=== PATIENT | male | born 1950 | race Caucasian/White ===

== ENCOUNTER → 2016-09-09 | Outpatient (CLI) | payer BC ==
[~2016-09-09] MED LIST: ATOR-22 PO; GLC/500 PO; GLC5; GLC5 PO; VTMD1000
[2016-09-09 13:08] LABS: ESTIMATED AVERAGE GLUCOSE 192 mg/dl; HA1C FLAG Normal (Normal)
[2016-09-09 13:10] LABS: ALT/SGPT 34 U/L (12-78); BLOOD UREA NITROGEN 11 mg/dl (7-18); BUN/CREATININE RATIO 10.4 (10-20); CALCIUM 8.7 mg/dl (8.5-10.1); CARBON DIOXIDE 24 mmol/L (21-32); CHLORIDE 103 mmol/L (98-107); CHOLESTEROL 143 mg/dl (0-200); GLUCOSE 132 mg/dl (70-99); POTASSIUM 3.9 mmol/L (3.5-5.1); SODIUM 138 mmol/L (136-145)
[2016-09-09 13:14] LABS: ALKALINE PHOSPHATASE 83 U/L (45-117); AST/SGOT 25 U/L (15-37); CHOLESTEROL/HDL RATIO 3.3; HDL CHOLESTEROL 43 mg/dl; LDL CHOLESTEROL CALCULATED 53 mg/dl; PROSTATE SPECIFIC ANTIGEN 0.796 ng/ml (0.000-4.000); TRIGLYCERIDES 237 mg/dl (0-150); VERY LOW DENSITY LIPOPROT CALC 47 mg/dl
[2016-09-09 13:34] LABS: RATIO 8.1 mcg/mg (0-30.0)
== END | disposition home or self-care (01) ==
LOC: C.LABBFT 07:58
PROVIDERS: ATTEND Nurse Practitioner
DX: E11.65 Type 2 diabetes mellitus with hyperglycemia (principal); Z12.5 Encounter for screening for malignant neoplasm of prostate

== ENCOUNTER → 2017-01-13 | Outpatient (CLI) | payer BC ==
[2017-01-13 12:19] LABS: ESTIMATED AVERAGE GLUCOSE 177 mg/dl; HA1C FLAG Normal (Normal)
[2017-01-13 12:27] LABS: AST/SGOT 20 U/L (15-37); BLOOD UREA NITROGEN 21 mg/dl (7-18); BUN/CREATININE RATIO 17.5 (10-20); CALCIUM 8.7 mg/dl (8.5-10.1); CARBON DIOXIDE 27 mmol/L (21-32); CHLORIDE 104 mmol/L (98-107); GLUCOSE 115 mg/dl (70-99); POTASSIUM 4.6 mmol/L (3.5-5.1); SODIUM 137 mmol/L (136-145)
[2017-01-13 12:39] LABS: ALB/GLOB RATIO 1.1 (0.9-2); ALKALINE PHOSPHATASE 74 U/L (45-117); ALT/SGPT 30 U/L (12-78); CHOLESTEROL 151 mg/dl (0-200); CHOLESTEROL/HDL RATIO 4.3; HDL CHOLESTEROL 35 mg/dl; LDL CHOLESTEROL CALCULATED 52 mg/dl; TRIGLYCERIDES 318 mg/dl (0-150); VERY LOW DENSITY LIPOPROT CALC 64 mg/dl
== END | disposition home or self-care (01) ==
LOC: C.LABBFT 07:39
PROVIDERS: ATTEND Nurse Practitioner
DX: E11.65 Type 2 diabetes mellitus with hyperglycemia (principal); E07.9 Disorder of thyroid, unspecified

== ENCOUNTER → 2017-07-19 | Outpatient (CLI) | payer BC ==
[2017-07-19 12:51] LABS: ESTIMATED AVERAGE GLUCOSE 166 mg/dl; HA1C FLAG Normal (Normal)
[2017-07-19 12:55] LABS: ALT/SGPT 28 U/L (12-78); BLOOD UREA NITROGEN 14 mg/dl (7-18); BUN/CREATININE RATIO 10.8 (10-20); CALCIUM 9.1 mg/dl (8.5-10.1); CARBON DIOXIDE 27 mmol/L (21-32); CHLORIDE 99 mmol/L (98-107); CHOLESTEROL 166 mg/dl (0-200); CREATININE 1.26 mg/dl (0.60-1.40); GLUCOSE 160 mg/dl (70-99); POTASSIUM 4.1 mmol/L (3.5-5.1); SODIUM 134 mmol/L (136-145); TRIGLYCERIDES 414 mg/dl (0-150)
[2017-07-19 12:59] LABS: ALKALINE PHOSPHATASE 84 U/L (45-117); AST/SGOT 20 U/L (15-37); CHOLESTEROL/HDL RATIO 3.5; HDL CHOLESTEROL 47 mg/dl; PROSTATE SPECIFIC ANTIGEN 0.774 ng/ml (0.000-4.000)
[2017-07-19 13:01] LABS: CREATININE RANDOM URINE 18.5 mg/dl
[2017-07-19 13:12] LABS: RATIO 135.7 mcg/mg (0-30.0)
== END | disposition home or self-care (01) ==
LOC: C.LABBFT 08:27
PROVIDERS: ATTEND Nurse Practitioner
DX: E11.65 Type 2 diabetes mellitus with hyperglycemia (principal); Z12.5 Encounter for screening for malignant neoplasm of prostate

== ENCOUNTER → 2017-07-28 | Outpatient (CLI) | payer BC ==
--- NOTE | 2017-07-28 09:27 | DIAGNOSTIC IMAGING REPORT ---
ULTRASOUND EXAM AAA SCREEN CLINICAL HISTORY: 67 years-old Male presenting with Z00.00 Health Maintenance. TECHNIQUE: Real-time grayscale and color and spectral Doppler ultrasound imaging of the abdominal aorta and iliac arteries was performed. COMPARISON: None. FINDINGS: Proximal aorta: Patent. Transverse dimension 2.3 x 2.4 cm. Mid aorta: Patent. Transverse dimension 2.1 x 2.1 cm. Distal aorta: Patent. Transverse dimension 2.1 x 2.0 cm. Right iliac artery: Patent. Transverse dimension 1.5 x 1.4 cm. Left iliac artery: Patent. Transverse dimension 1.5 x 1.5 cm. IMPRESSION: 1. No evidence of abdominal aortic aneurysm. Electronically signed by: Uche Contreras M.D. 07/28/2017 9:25 AM Dictated Date/Time: 07/28/2017 9:21 AM
== END | disposition home or self-care (01) ==
LOC: C.ULTR 08:52
PROVIDERS: ATTEND Nurse Practitioner
DX: Z00.00 Encounter for general adult medical examination without abnormal findings (principal); Z87.891 Personal history of nicotine dependence

== ENCOUNTER → 2017-09-12 | Outpatient (CLI) | payer BC ==
--- NOTE | 2017-09-12 14:36 | DIAGNOSTIC IMAGING REPORT ---
L-SPINE MIN 4 VIEWS ROUTINE HISTORY: Pain. Nausea. M54.16 Lumbar radiculopathy COMPARISON: None. FINDINGS: There is no fracture. No subluxation. Moderate degenerative disc change throughout. Mild anterior osteophytic changes throughout. IMPRESSION: Moderate degenerative disc change. No acute abnormality. The above report was generated using voice recognition software. It may contain grammatical, syntax or spelling errors. Electronically signed by: Mark Mast M.D. 09/12/2017 2:35 PM Dictated Date/Time: 09/12/2017 2:34 PM
--- NOTE | 2017-09-12 14:37 | DIAGNOSTIC IMAGING REPORT ---
SI JOINTS 3 OR MORE VIEWS CLINICAL HISTORY: M54.16 Lumbar radiculopathy COMPARISON STUDY: No previous studies for comparison. FINDINGS: There is no SI joint fusion. There are no erosive changes to indicate an inflammatory sacroiliitis. No acute fractures are evident. There is slight sclerosis involving the iliac margin the left SI joint. IMPRESSION: No conventional radiographic evidence of an inflammatory sacroiliitis Electronically signed by: Dudley Armstrong M.D. 09/12/2017 2:35 PM Dictated Date/Time: 09/12/2017 2:35 PM
== END | disposition home or self-care (01) ==
LOC: C.RAD1850 14:02
PROVIDERS: ATTEND Physician Assistant Medical
DX: M51.36 Other intervertebral disc degeneration, lumbar region (principal)

== ENCOUNTER 2017-12-30 10:37 | Emergency (ER) | payer BC ==
[~2017-12-30] VITALS: Ht 170.2 cm; Wt 99.4 kg
[~2017-12-30 10:37] MED LIST changes: -GLC5; -VTMD1000; +VTMD1000 PO
[2017-12-30 10:52] VITALS: Ht 170.2 cm; Wt 99.4 kg
[2017-12-30] MEDS ORDERED: ASPI-232 PO (11:01)
[2017-12-30] MEDS ORDERED: OMEP20CA9 PO (11:01)
[2017-12-30] MEDS ORDERED: ONDANSETRON 4MG OD TAB PO STA (11:22)
[2017-12-30] MEDS ORDERED: KETOROLAC TROMETHAMINE 60 MG/2 ML VIAL IM STA (11:22)
[2017-12-30] MEDS ORDERED: MoRPHine SULFATE 10 MG/ML CARP/VIAL IM STA (11:22)
[2017-12-30] MEDS ORDERED: DEXAMETHASONE **PF** INJ 10 MG/ML VIAL IM ONE (11:30)
--- NOTE | 2017-12-30 11:56 | DIAGNOSTIC IMAGING REPORT ---
LUMBAR SPINE CT CT DOSE: 883.44 mGy.cm HISTORY: Acute L lumbar radiculitis - tripped in hole TECHNIQUE: Multiaxial CT images of the lumbar spine were performed and reformatted in the sagittal and coronal plane without the use of contrast. A dose lowering technique was utilized adhering to the principles of ALARA. COMPARISON: Lumbar spine MRI 01/16/2014. Lumbar spine radiograph 09/12/2017. FINDINGS: No fracture or subluxation within the lumbar spine. Moderate to space narrowing at L3-L4. Mild disc space narrowing at L4-L5 and L5-S1. Moderate facet degenerative changes within the mid to lower lumbar spine. Posterior decompression from L4 through S1. Evaluation the central canal is suboptimal due to the CT technique. There is moderate to severe central canal narrowing at L3-L4, unchanged. IMPRESSION: No fractures within the lumbar spine. No change in the degenerative changes at L3-L4. Electronically signed by: Oskar Duran M.D. 12/30/2017 11:55 AM Dictated Date/Time: 12/30/2017 11:51 AM
[2017-12-30] MEDS ORDERED: METH4PAK PO (12:20)
[2017-12-30] MEDS ORDERED: OXYC1TAB3 PO (12:20)
--- NOTE | 2017-12-30 12:31 | EMERGENCY ROOM VISIT NOTE ---
History First contact with patient: 11:07 Chief Complaint: BACK PAIN Stated Complaint: PAIN IN LOWER BACK History of Present Illness The patient is a 67 year old male who presents to the Emergency Room with his with complaints of lower back pain radiating down the left lower extremity to the foot. The patient reports that he was hiking up a trailer yesterday when he stepped in a hole and twisted his back. He did not fall to the ground. The patient now reports pain and burning sensation radiating to the left foot. He denies any profound weakness of the left lower extremity, bladder/ bowel incontinence or saddle anesthesias. The patient has had a prior history of back surgery [address] Bailey. The patient denies any pain radiating into the upper back or abdomen. He currently rates his discomfort a 9 out of 10. Review of Systems 10 system review was performed and was negative except for pertinent positives and negatives as indicated in history of present illness Past Medical/Surgical History Medical Problems: (1) Carpal Tunnel Syndrome (2) Disorder Of Thyroid Nos (3) Hypertension Nos (4) Spinal Stenosis, Lumbar Reg, W/Out Neurogenic Claudication (5) Type 2 Diabetes Mellitus Without Complications (6) Vitamin D Deficiency Nos Surgical Problems: (1) History of back surgery Family History FH: cancer FH: diabetes mellitus FH: heart disease FH: lung disease Social History Smoking Status: Former Smoker Alcohol Use: none Drug Use: none Marital Status: Occupation Status: retired Current/Historical Medications Scheduled Aspirin (Aspir-81), 1 TAB PO DAILY Atorvastatin (Lipitor), 20 MG PO DAILY Cholecalciferol (Vitamin D3), 1 TAB PO DAILY Glipizide (Glipizide), 5 MG PO QAM Metformin Hcl (Glucophage), 1,000 MG PO BID Methylprednisolone (Medrol Dosepak), 0 PO DAILY Omeprazole (Prilosec), 20 MG PO DAILY Scheduled PRN Oxycodone Ir (Roxicodone Ir), 1-2 TAB PO Q4H PRN for Pain Physical Exam Vital Signs Date Time Temp Pulse Resp B/P (MAP) Pulse Ox O2 Delivery O2 Flow Rate FiO2 12/30/17 10:52 36.6 96 20 152/98 96 Room Air Physical Exam CONSTITUTIONAL: Healthy and well nourished. Alert and oriented X 3 with positive affect. Patient appears in mild discomfort. HEENT: Normocephalic, atraumatic. Pupils equal, round and reactive. NECK: Full active range of motion without discomfort. RESPIRATORY: Clear to auscultation bilaterally with no wheezing, crackles, rhonchi or stridor. CARDIOVASCULAR: Regular rate and rhythm with no murmurs, rubs or gallops. GASTROINTESTINAL: Bowel sounds present in all quadrants. Soft and nontender to palpation. MUSCULOSKELETAL: Examination shows tenderness to palpation to the left lower lumbar spine and SI joint. Positive sitting straight leg raise. Negative logroll. Ankle plantar/dorsiflexion strength is 4 out of 5 and symmetric bilaterally. Pedal pulses are intact. INTEGUMENTARY: No rash or other significant dermatologic conditions noted. NEUROLOGIC: No focal neurologic deficits noted. Lower extremity deep tendon reflexes are 1+ and symmetric bilaterally. Left foot and toes are sensory intact. Medical Decision & Procedures ER Provider Diagnostic Interpretation: Noncontrast CT of the lumbar spine does not show any obvious fractures. Degenerative changes are noted. Radiologist report is as follows: LUMBAR SPINE CT CT DOSE: 883.44 mGy.cm HISTORY: Acute L lumbar radiculitis - tripped in hole TECHNIQUE: Multiaxial CT images of the lumbar spine were performed and reformatted in the sagittal and coronal plane without the use of contrast. A dose lowering technique was utilized adhering to the principles of ALARA. COMPARISON: Lumbar spine MRI 01/16/2014. Lumbar spine radiograph 09/12/2017. FINDINGS: No fracture or subluxation within the lumbar spine. Moderate to space narrowing at L3-L4. Mild disc space narrowing at L4-L5 and L5-S1. Moderate facet degenerative changes within the mid to lower lumbar spine. Posterior decompression from L4 through S1. Evaluation the central canal is suboptimal due to the CT technique. There is moderate to severe central canal narrowing at L3-L4, unchanged. IMPRESSION: No fractures within the lumbar spine. No change in the degenerative changes at L3-L4. Medications Administered Medications (Trade) Dose Ordered Sig/Hans Route Start Time Stop Time Status Last Admin Dose Admin Morphine Sulfate (MoRPHine SULFATE INJ) 8 mg NOW STAT IM 12/30/17 11:22 12/30/17 11:25 DC 12/30/17 11:35 8 MG Ketorolac Tromethamine (Toradol Inj) 60 mg NOW STAT IM 12/30/17 11:22 5/26/18 11:25 DC 12/30/17 11:34 60 MG Dexamethasone Sodium Phosphate (Dexamethasone Inj Pf) 10 mg NOW ONCE IM 12/30/17 11:30 12/30/17 11:31 DC 12/30/17 11:35 10 MG Ondansetron HCl (Zofran Odt) 4 mg NOW STAT PO 12/30/17 11:22 12/30/17 11:25 DC 12/30/17 11:34 4 MG ED Course Patient history and physical exam were performed. Nurse's notes were reviewed. Vital signs were reviewed and were normal. The patient reported notable discomfort. He elected IM management. The patient was administered IM morphine , Toradol and Decadron, along with Zofran ODT to prevent nausea. Noncontrast CT of the lumbar spine does not show any acute fractures. The patient was encouraged to contact Dr. Bailey's office on Monday to schedule an appointment for further follow-up and management. The patient will be provided prescriptions for OxyIR 5 mg, dispense #24 with no refills, along with a Medrol Dosepak. I did recommend that the patient watch his blood glucose levels closely with steroid use. The patient reports that he has taken steroids before in the past for his back. He was encouraged alternate ibuprofen and Tylenol for baseline pain relief. He was warned about drowsiness and constipation while taking OxyIR. He was instructed to return to the emergency department over the weekend for any progressively worsening pain or concerning symptoms of compressive neuropathy (foot drop, profound weakness, bladder/bowel incontinence or saddle anesthesias). The patient was happy with plan of care, voiced understanding of all discharge instructions, and rated his discomfort a 5 out of 10 at the conclusion of my exam. The patient was also seen and examined by Dr. Jolly, ED attending physician, who agrees with workup and plan of care. Medical Decision The patient does have clinical symptoms and physical exam findings consistent with lumbar radiculitis. Based on physical exam and history, I do not suspect conus medullaris or cauda equina syndrome. CT scan does not show any evidence for acute fracture or subluxation. Other considerations include acute discitis and hematoma. [place] Drug Monitoring Program Search Results: patient reviewed within database, no issues identified Medication Reconcilliation Current Medication List: was personally reviewed by me Blood Pressure Screening Patient's blood pressure: Normal blood pressure Impression Primary Impression: Left lumbar radiculitis Departure Information Dispostion Home / Self-Care Prescriptions Methylprednisolone (MEDROL DOSEPAK) 4 Mg Igor 0 PO DAILY, #1 PKT Prov: Camilo Galarza PA 12/30/17 Oxycodone Ir (Roxicodone Ir) 5 Mg Tab 1-2 TAB PO Q4H Y for Pain, #24 TAB For Initial Treatment Prov: Camilo Galaraz PA 12/30/17 Referrals Juvencio Bailey, DO Forms HOME CARE DOCUMENTATION FORM, IMPORTANT VISIT INFORMATION Patient Instructions Lumbar Radiculopathy, [facility] Additional Instructions Avoid heavy lifting or sitting for long periods of time. Ibuprofen 800 mg and/or Tylenol 1000 mg every 8 hours. You may also alternate these medications for more effective pain relief: Ibuprofen --4 HRS--> Tylenol --4 HRS--> ibuprofen --4 HRS--> Tylenol .... OxyIR as needed for worse pain. Take Medrol Dosepak as prescribed - next dose tomorrow morning. Follow-up with Dr. Bailey for further reevaluation and management -call Monday for an appointment.
[2017-12-30 12:41] VITALS: BP 152/98; PULSE 96; TEMP 36.6; O2SAT 96
--- NOTE | 2017-12-30 15:46 | EMERGENCY ROOM VISIT NOTE ---
ED Visit Note First contact with patient: 11:07 I have personally seen and evaluated the patient with the physician back office medical assistant. I agree with the diagnostic/management decisions and have personally been involved in these decisions and agree with the diagnosis.
== END 2017-12-30 12:42 | disposition home or self-care (01) ==
LOC: C.EDB 10:37 → C.EDD 12:42
DX: M54.16 Radiculopathy, lumbar region (principal); X50.1XXA Overexertion from prolonged static or awkward postures, initial encounter; I10 Essential (primary) hypertension; M48.061 Spinal stenosis, lumbar region without neurogenic claudication; E11.9 Type 2 diabetes mellitus without complications; E55.9 Vitamin D deficiency, unspecified; Z87.891 Personal history of nicotine dependence; Z79.82 Long term (current) use of aspirin; Z79.84 Long term (current) use of oral hypoglycemic drugs; Z79.899 Other long term (current) drug therapy

== ENCOUNTER → 2018-02-27 | Outpatient (CLI) | payer BC ==
[~2018-02-27] MED LIST changes: +ASPI-232 PO; +OMEP20CA9 PO; +OXYC-90 PO
--- NOTE | 2018-02-27 11:25 | DIAGNOSTIC IMAGING REPORT ---
MRI LUMBAR SPINE W/O CONTRAST CLINICAL HISTORY: Low back pain with left leg radiculopathy. TECHNIQUE: Sagittal and axial T1, T2 and STIR images were obtained. COMPARISON STUDY: CT scan dated 12/30/2017 OBSERVATIONS: The vertebral bodies and posterior elements appear intact. There is no abnormal bony signal present to suggest a marrow replacement process. L1-2: No disc protrusions or extrusions. No evidence of spinal canal or neural foraminal compromise. L2-3: There is a circumferential disc bulge. There is mild spinal canal narrowing. There is no significant foraminal narrowing L3-4: There is a grade 1 spondylolisthesis of L3 on L4. There is a circumferential disc bulge present. There is facet joint arthropathy. There is moderate spinal stenosis. There is minor bilateral foraminal narrowing. L4-5: There are no focal herniations. There is evidence for a prior spinal decompression. There is facet joint arthropathy. There is no significant spinal or foraminal stenosis. L5-S1: There is a small left paracentral disc protrusion. There is evidence for a posterior spinal decompression. There is facet joint arthropathy. There is no spinal stenosis. There is no significant foraminal narrowing. The conus medullaris and cauda equina appear normal. IMPRESSION: 1. Postsurgical changes at the L4-5 and L5-S1 levels 2. Small left paracentral disc protrusion at the L5-S1 level 3. Disc bulge, facet joint arthropathy and grade 1 spondylolisthesis at the L3-4 level. This results in moderate spinal stenosis. 4. Disc bulge and mild spinal canal narrowing at the L2-3 level. Electronically signed by: Dudley Armstrong M.D. 02/27/2018 11:23 AM Dictated Date/Time: 02/27/2018 11:18 AM
== END | disposition home or self-care (01) ==
LOC: C.MRI 10:28
PROVIDERS: ATTEND Orthopaedic Surgery Orthopaedic Surgery of the Spine
DX: M48.061 Spinal stenosis, lumbar region without neurogenic claudication (principal); M43.16 Spondylolisthesis, lumbar region; M51.16 Intervertebral disc disorders with radiculopathy, lumbar region

== ENCOUNTER → 2018-03-06 | Outpatient (CLI) | payer BC ==
--- NOTE | 2018-03-06 11:41 | DIAGNOSTIC IMAGING REPORT ---
ULTRASOUND L VENOUS DOPP LOWER EXT UNILAT CLINICAL HISTORY: LEFT LEG PAIN COMPARISON STUDY: No previous studies for comparison. FINDINGS: Real-time and color flow Doppler imaging were performed. Flow was seen within the femoral, popliteal and calf veins with no intraluminal thrombus demonstrated. The saphenous vein is patent. IMPRESSION: No evidence of left lower extremity DVT. Electronically signed by: Dudley Armstrong M.D. 03/06/2018 11:40 AM Dictated Date/Time: 03/06/2018 11:40 AM
== END | disposition home or self-care (01) ==
LOC: C.ULTRBC 10:55
PROVIDERS: ATTEND Orthopaedic Surgery Orthopaedic Surgery of the Spine
DX: M79.605 Pain in left leg (principal)

== ENCOUNTER → 2018-03-23 | Outpatient (CLI) | payer BC ==
--- NOTE | 2018-03-23 10:39 | DIAGNOSTIC IMAGING REPORT ---
L LOWER EXT JOINT WITHOUT CLINICAL HISTORY: 67 years-old Male presenting with LEFT KNEE MENISCAL TEAR/BAKERS CYST. TECHNIQUE: Multisequence, multiplanar MR imaging of the left knee was performed without the use of intravenous contrast. IV contrast: None. COMPARISON: None. FINDINGS: Localizer images: Unremarkable. Bone marrow: Normal bone marrow signal intensity. No bony edema. Articular cartilage: Multifocal sites of chondral thinning and irregularity affecting all 3 compartments. There is a central osteophyte measuring 8 mm in width in the lateral compartment along the mid to posterior weightbearing surface. Cartilage thinning is most severe in the medial compartment. Prominent tricompartmental osteophytosis. Menisci: Complex degenerative type tear of the posterior root and horn of the medial meniscus. Intrasubstance signal intensity within the lateral meniscus diffusely consistent with degenerative change. No focal tear is appreciated in the lateral meniscus. Cruciate ligaments: Anterior and posterior cruciate ligaments intact. Collateral ligaments: Medial collateral ligament intact though with mild thickening in the proximal fibers suggesting chronic degeneration. Lateral collateral ligament complex including the biceps femoris tendon, fibular collateral ligament, and iliotibial band intact. Increased signal intensity of the insertional fibers of the popliteus tendon suggests tendinosis. Quadriceps and patellar tendons: Quadriceps and patellar tendons intact. Medial and lateral patellar retinacula intact. Joint effusion: Trace knee joint effusion. Loose bodies are present in the posterior superior recess medially (series 6 image 6). No popliteal cyst. Muscle: Normal muscle bulk and muscle signal intensity. Superficial soft tissue: No subcutaneous edema. IMPRESSION: 1. Tricompartmental degenerative changes most severe in the medial and lateral compartments. Prominent central osteophyte in the lateral compartment. 2. Degenerative type tear of the posterior root and horn of the medial meniscus. 3. Degenerative changes of the lateral meniscus. 4. Degenerative changes of the proximal fibers of the MCL. 5. Tendinosis of the insertional fibers of the popliteus tendon. 6. Trace knee joint effusion with posterior loose bodies suspected. Electronically signed by: Uche Contreras M.D. 03/23/2018 10:37 AM Dictated Date/Time: 03/23/2018 10:28 AM
== END | disposition home or self-care (01) ==
LOC: C.MRIBC 09:26
PROVIDERS: ATTEND Orthopaedic Surgery Orthopaedic Surgery of the Spine
DX: S83.289A Other tear of lateral meniscus, current injury, unspecified knee, initial encounter (principal); M71.21 Synovial cyst of popliteal space [Baker], right knee; X58.XXXA Exposure to other specified factors, initial encounter

== ENCOUNTER 2018-08-02 06:29 | Inpatient (IN) ==
--- NOTE | 2018-07-12 14:44 | Anesthesiology Consultation ---
Date of Service July 12, 2018 Assessment & Plan (1) Encounter for pre-operative examination: Plan: - Check BSG AM DOS Chart Review Chart Review: Acceptable Risk for Surgery and Patient seen in Pre Admission Testing Teaching & Discussion Pre-Anesthesia Teaching/Discussion Notes: Instructed NPO after midnight before surgery,except medications with 15 cc of water. Medication instructions provided according to the PAT guidelines. History Surgery Operation Date: 08/02/18 11:10 Proposed Procedures p Left Total Knee Replacement - Jair Tan MD Height/Weight Height: 5 ft 6 in Weight: 97 kg Allergies Allergy/AdvReac Type Severity Reaction Status Date / Time No Known Allergies Allergy Unverified 07/10/18 15:50 Medications Home Medications Medication Instructions Recorded Confirmed Last Taken aspirin [Aspirin Low Dose] 81 mg PO QAM 07/10/18 07/10/18 Unknown atorvastatin 20 mg PO HS 07/10/18 07/10/18 Unknown cholecalciferol (vitamin D3) 1,000 unit PO QAM 07/10/18 07/10/18 Unknown [Vitamin D3] glipizide 10 mg PO BID 07/10/18 07/10/18 Unknown lisinopril 10 mg PO QAM 07/10/18 07/10/18 Unknown metformin 1,000 mg PO BID 07/10/18 07/10/18 Unknown omeprazole magnesium [Prilosec OTC] 20 mg PO QAM 07/10/18 07/10/18 Unknown aluminum hydrox-magnesium carb 1 dose PO DAILY PRN 07/12/18 07/12/18 Unknown [Gaviscon] empagliflozin 25 mg PO QAM 07/12/18 07/12/18 Unknown saxagliptin 5 mg PO DAILY 07/12/18 07/12/18 Unknown Past Medical History Medical History Degenerative disc disease Diabetes mellitus, type 2 NIDDM GERD (gastroesophageal reflux disease) CONTROLLED Hyperlipidemia Hypertension Obesity Past Family History Family History Mother Family history of diabetes mellitus Aunt Family history of diabetes mellitus Uncle Family history of diabetes mellitus Past Surgical History Surgical History History of arthroscopy LEFT KNEE History of colonoscopy History of esophagogastroduodenoscopy (EGD) History of laminectomy LUMBAR Past Anesthesia History No Hx of Anesthesia Complications and No Family Hx of Anesthesia Complications History of PONV No Motion Sickness Screening History of Motion Sickness: No Social History Smoking Status: Former smoker tobacco type: cigarettes Do You Dip or Chew Tobacco: No Smoking End Date: QUIT 40 YEARS AGO; 2 PPD X 8 YEARS Hx Alcohol Use: No Hx Substance Use: No substance use type: does not use Exercise / Class Metabolic Activity II 4-5 Yardwork/Stairs/Walk up hill Review of Systems Patient reports knee pain. Occasional reflux. Patient denies chest pain, shortness of breath, dyspnea on exertion, cough, wheezing, palpitations. Physical Exam Vital Signs VITALS BP 124/82 P 90 TEMP 97.8 RESP 18 SP02 96%RA Full neck and c-spine range of motion. Small oral opening. Full TMJ range of motion. TMD 3 finger breaths Mallampati Score 2 Dentition: upper full dentures; lower multiple chipped teeth per patient Lungs: clear throughout to auscultation Cardiac: regular rate and rhythm, no murmurs noted Spine: normal Carotid arteries: negative bruit Extremities: no edema Testing Electrocardiogram Date: 07/12/18 NSR at 84bpm. Cannot rule out inferior infarct (no significant change from 2013 per cardio). Chest X-Ray Date: 07/12/18 Findings: + NAD The heart is at the upper limits of normal in size. There is no failure. There is no focal pulmonary consolidation. There are no pleural effusions. An opacity at the level of cardiophrenic angle is felt to be secondary to summation with a fat pad. There is a linear band of atelectasis/scarring at the right lung base. Laboratory Results 07/12/18 14:55 07/12/18 14:55 Blood Type A Positive 07/12/18 14:55 Antibody Screen NEGATIVE 07/12/18 14:55 PT 10.0 Seconds (9.0-12.0) 07/12/18 14:55 INR 1.0 (0.9-1.1) 07/12/18 14:55 APTT 25.6 Seconds (21.0-31.0) 07/12/18 14:55 Hemoglobin A1c 9.4 % (4.5-5.6) H 07/12/18 14:55 Surgeon made aware of elevated HGBA1C
--- NOTE | 2018-07-12 14:47 | PAT Medication Instructions ---
Medication Instructions Date of Service July 12, 2018 Home Medications aspirin [Aspirin Low Dose] 81 mg PO QAM atorvastatin 20 mg PO HS cholecalciferol (vitamin D3) 1,000 unit PO QAM glipizide 10 mg PO BID lisinopril 10 mg PO QAM metformin 1,000 mg PO BID omeprazole magnesium [Prilosec OTC] 20 mg PO QAM aluminum hydrox-magnesium carb 1 dose PO DAILY PRN empagliflozin 25 mg PO QAM saxagliptin 5 mg PO DAILY DO NOT take the morning of surgery cholecalciferol (vitamin D3) 1,000 unit PO QAM glipizide 10 mg PO BID metformin 1,000 mg PO BID aluminum hydrox-magnesium carb 1 dose PO DAILY PRN empagliflozin 25 mg PO QAM saxagliptin 5 mg PO DAILY Take morning of surgery With a small sip of water, OTHERWISE NOTHING TO EAT OR DRINK AFTER MIDNIGHT: aspirin [Aspirin Low Dose] 81 mg PO QAM omeprazole magnesium [Prilosec OTC] 20 mg PO QAM Take evening before surgery atorvastatin 20 mg PO HS glipizide 10 mg PO BID metformin 1,000 mg PO BID aluminum hydrox-magnesium carb 1 dose PO DAILY PRN(if needed) Other Notes If you have any questions please call us at [phone] or [phone] or [phone] or [phone]
--- NOTE | 2018-07-12 15:22 | XRay Report ---
XR chest Pre-admission PA/Lat CLINICAL HISTORY: Preoperative chest COMPARISON STUDY: None FINDINGS: The heart is at the upper limits of normal in size. There is no failure. There is no focal pulmonary consolidation. There are no pleural effusions. An opacity at the level of cardiophrenic ang le is felt to be secondary to summation with a fat pad. There is a linear band of atelectasis/scarrin g at the right lung base.[ IMPRESSION: No active disease in the chest. Electronically signed by: Dudley Armstrong M.D. 07/12/2018 3:21 PM
[2018-07-12 15:43] LABS: Basophils # (auto) 0.02 K/uL (0-0.2); Basophils % (auto) 0.3 %; Eosinophils % (auto) 1.5 %; Hematocrit (blood only) 46.8 % (42-52); Hemoglobin 16.3 g/dL (14.0-18.0); Immature Granulocytes # (auto) 0.02 K/uL (0.00-0.02); Immature Granulocytes % (auto) 0.3 %; Lymphocytes % (auto) 28.7 %; Mean Corpuscular Hgb Conc 34.8 g/dL (32-36); Mean Corpuscular Volume 82.5 fL (80-100); Mean Platelet Volume 8.8 fL (7.4-10.4); Monocytes # (auto) 0.52 K/uL (0.11-0.59); Monocytes % (auto) 7.8 %; Neutrophils # (auto) 4.07 K/uL (1.4-6.5); Neutrophils % (auto) 61.4 %; Platelet Count 206 K/uL (130-400); RDW Coefficient of Variation 13.1 % (11.5-14.5); RDW Standard Deviation 39.2 fL (36.4-46.3); Red Blood Count 5.67 M/uL (4.7-6.1); White Blood Count 6.63 K/uL (4.8-10.8)
[2018-07-12 15:52] LABS: Partial Thromboplastin Time 25.6 Seconds (21.0-31.0)
[2018-07-12 16:28] LABS: BUN Creatinine Ratio 18.2 (10-20); Calcium 9.5 mg/dl (8.5-10.1); Est GFR (African American) 69.3; Est GFR (Non-African American) 59.8; Potassium 4.8 mmol/L (3.5-5.1)
[2018-07-13 06:46] LABS: Estimated Average Glucose 223 mg/dl
--- NOTE | 2018-07-28 19:57 | History and Physical Report ---
DATE OF ADMISSION: 08/02/2018 CHIEF COMPLAINT: Left knee pain. HISTORY OF PRESENT ILLNESS: Patient is a 68-year-old gentleman who presents for a surgical treatment of his left knee. He has had about a year history of gradually increasing and intermittent on and off knee pain. It is mostly localized to the medial side of his knee. He has been through extensive conservative treatment, which just does not help. We have injected his knee, which provided him a couple of days relief and that is it. He has been on different antiinflammatories. He has been having trouble walking any distance. The more he walks, the more it hurts. He does have a history of a left knee scope by Dr. Hicks 15-20 years ago. He now would like to proceed with definitive treatment. PAST MEDICAL HISTORY: Significant for 1. Diabetes. 2. Hypertension. 3. Elevated cholesterol. 4. Low back pain, status post spine surgery. 5. Gastroesophageal reflux disease. 6. Mild obesity with BMI of 35. PAST SURGICAL HISTORY: Previous surgeries include 1. Lumbar spine surgery 3-1/[address] Bailey. 2. Left knee scope 15-[address] Hicks. 3. Laparoscopic surgery. 4. Carpal tunnel release of his left hand. ALLERGIES: None. CURRENT MEDICATIONS: 1. Glipizide 5 mg 2 tablets twice a day. 2. Metformin 1000 mg twice a day. 3. Atorvastatin 20 mg at bedtime. 4. Tradjenta 5 mg once a day. 5. Vitamin D 100 international units a day. 6. Lisinopril 10 mg a day. 7. Prilosec 20 mg. 8. Aspirin 81 mg a day. 9. Empagliflozin 25 mg a day. 10. Naproxen sodium. SOCIAL HISTORY: A 68-year-old male. He is . He does not smoke. FAMILY HISTORY: Noncontributory. REVIEW OF SYSTEMS: Significant for poorly controlled diabetes. He has recently gotten in with his medical doctor, and they are trying to get this under better control preoperatively. No chest pain, no shortness of breath. No history of DVT or PE. PHYSICAL EXAMINATION: GENERAL: Examination reveals a healthy, pleasant, middle-aged male, looks to be in reasonably good health. HEENT: Benign. NECK: Supple, no lymphadenopathy. LUNGS: Clear to auscultation. CARDIOVASCULAR: Heart has a regular rate and rhythm. GASTROINTESTINAL: Abdomen is soft, nontender, nondistended. EXTREMITIES: Grossly neurovascularly intact except as follows: Examination of the left knee reveals patient walks with a bit of a limp. He has slight varus alignment to his knee. Small knee effusion. He is tender over the medial joint line. Range of motion is 5 to 125. There is no instability. No pain with hip motion. IMAGING: X-rays of the left knee reviewed, show moderately advanced medial compartment DJD. He has 50% loss of his joint space on the flexion films. He has patellofemoral arthritis as well. He has significant posterior osteophytes off the femur. ASSESSMENT: A 68-year-old male with a history of knee arthroscopy in the past with moderately advanced knee degenerative joint disease. He has failed all conservative treatment. He would like to proceed with knee replacement. PLAN: We talked about treatment options. We are going to proceed with left knee replacement. The risks and benefits of this procedure were explained to the patient including but not limited to DVT, PE, , infection, neurological injury, vascular injury, bleeding problem, pain and limited range of motion, stiffness, failure to relieve symptoms, incomplete relief of symptoms, need for further surgery in the future, fracture, leg length inequality, nerve palsy, and persistent pain. Patient understands and desires to proceed. Informed consent was obtained. We did talk to him about holding his lisinopril and metformin on the morning of surgery and naproxen to 10 days preop. His hemoglobin A1c was 9.4, and he has gotten to with his medical doctor, and they are trying to get this under better control. As far as discharge plans, he is planned to be discharged to home using [facility] home health program.
[~2018-08-02 06:29] MED LIST changes: +ACETAMINOPHEN 500 MG TAB PO SCH; -ASPI-232 PO; -ATOR-22 PO; +BUPIVACAINE 0.5 % 5 MG/1 ML PF 10ML VIAL ONE; +BUPIVACAINE LIPOSOME/PF 266 MG, BUPIVACAINE/EPINEPHRINE 50 ML, SODIUM CHLORIDE 0.9% 30 ... INFIL SCH; +CEFAZOLIN 2000MG 2,000 MG/15 ML SYR IV SCH; +FAMOTIDINE 20 MG TAB PO SCH; +GABAPENTIN 300 MG PO SCH; -GLC/500 PO; -GLC5 PO; +METOCLOPRAMIDE HCL 10 MG TABLET PO SCH; -OMEP20CA9 PO; -OXYC-90 PO; +ROPIVACAINE 0.5% 5 MG/ML 30 ML VIAL ONE; +SCOPOLAMINE 1.5 MG TDSY TD SCH; -VTMD1000 PO
[2018-08-02] MEDS ORDERED: TRANEXAMIC ACID 1,000 MG **IV Intra-op IV SCH (06:30)
--- NOTE | 2018-08-02 06:48 | History & Physical Bridge Note ---
Date of Service August 02, 2018 History & Physical Bridge Note I have examined the patient, reviewed the History & Physical and in the interval since the performance of the History & Physical I have noted the following changes of clinical significance: no changes noted
[2018-08-02] MEDS: LR 500ML BOLUS, THEN 15ML/HR IV SCH (07:15)
[2018-08-02] MEDS: LR 60ML/HR IV SCH ×2 (07:16→21:13)
[2018-08-02] MEDS ORDERED: MIDAZOLAM HCL 1 MG/ML 2ML VIAL ONE ×2 (07:23→09:31)
[2018-08-02] MEDS ORDERED: fentaNYL citrate 100 MCG/2 ML VIAL ONE (07:23)
[2018-08-02] MEDS ORDERED: PROPOFOL IV EMULSION 10 MG/ML 20 ML VIAL IV ONE (08:17)
[2018-08-02] MEDS ORDERED: BUPIVACAINE 0.25% 30 ML VIAL ONE (08:53)
[2018-08-02] MEDS ORDERED: BUPIVACAINE LIPOSOME 1.3% 266 MG/20 ML VIAL INFIL ONE (08:53)
[2018-08-02] MEDS ORDERED: SODIUM CHLORIDE 0.9% PF 50 ML VIAL ONE (08:53)
[2018-08-02] MEDS ORDERED: BACITRACIN INJ 50,000 UNIT VIAL ONE (08:53)
[2018-08-02] MEDS ORDERED: EPINEPHrine INJ 1 MG/ML AMP ONE (08:54)
[2018-08-02] MEDS ORDERED: PHENYLEPHRINE 100MCG/ML 5ML SYR ONE (11:01)
--- NOTE | 2018-08-02 11:04 | Post Operative Brief Note ---
Immediate Post Op Note v1 Date of Surgery August 02, 2018 Pre & Post Diagnosis Operation Date: 08/02/18 08:50 Pre-Op Diagnosis: Left Knee Advanced Degenerative Joint Disease Post-Op Diagnosis: Left Knee Advanced Degenerative Joint Disease Procedure Operation Date: 08/02/18 08:50 Actual Procedures p Left Total Knee Replacement(Left) - Jair Tan MD Surgeon Jair Tan MD Collection Technician Cheryl, PAC Estimated Blood Loss 50 Findings Consistent with Post-Op Diagnosis Fluids 1200 cc Specimens Left Knee Drains Salazar Catheter (A16 Kazakh salazar catheter was attempted to by placed by LÁZARO Farfan, resistance met at urethral opening, a 12 Kazakh salazar was then placed without difficulty, concentrated yellow urine obtained, output to be monitored by Anesthesia.) Anesthesia Type Spinal MAC Complications none Disposition Accompanied Patient To Recovery: No Disposition: Recovery Room
--- NOTE | 2018-08-02 11:32 | XRay Report ---
XR knee LT 2V routine CLINICAL HISTORY: Surgical Post Op COMPARISON: MRI of the left knee March 23, 2018. Left knee radiograph July 12, 2018. FINDINGS: Alignment of the total left knee arthroplasty is anatomic. There is no periprosthetic frac ture or unexpected radiopaque foreign body. Skin jose a are present. IMPRESSION: Expected findings following total left knee arthroplasty. Electronically signed by: Oren Freitas M.D. 08/02/2018 11:30 AM
[2018-08-02] MEDS ORDERED: ePHEDrine sulfate 50 MG/ML AMP IV PRN (11:56)
[2018-08-02] MEDS ORDERED: ATROPINE SULFATE 0.1 MG/ML 5ML SYR IV PRN (11:56)
--- NOTE | 2018-08-02 11:57 | Anesthesiology Progress Note ---
Date of Service August 02, 2018 Anesthesia Post Procedure Vital Signs Vital Signs: Temp Pulse Pulse Resp BP Pulse Ox 08/02/18 11:50 67 19 118/68 94 08/02/18 11:40 72 20 121/69 94 08/02/18 11:30 36.6 C 76 18 117/67 94 08/02/18 11:20 79 18 102/63 94 08/02/18 11:11 36.6 C 86 12 106/60 95 08/02/18 06:56 36.8 C 99 H 20 153/87 H 96 Pain Intensity Left Knee: Pain Intensity: 2 Notes Mental Status: alert / awake / arousable Patient Amnestic to Procedure: Yes Nausea / Vomiting: adequately controlled Pain: adequately controlled Airway Patency, RR, SpO2: stable & adequate BP & HR: stable & adequate Neuraxial Anesthesia: was administered and sensory block is resolving Anesthetic Complications: no major complications apparent
--- NOTE | 2018-08-02 12:27 | Operative Report ---
DATE OF OPERATION: 08/02/2018 SURGEON: Jair Tan MD ASSISTANT NURSE MANAGER: LÁZARO Shelby PREOPERATIVE DIAGNOSIS: Left knee degenerative joint disease. POSTOPERATIVE DIAGNOSIS: Left knee degenerative joint disease. PROCEDURE PERFORMED: Left cemented posterior stabilized total knee arthroplasty. COMPLICATIONS: None. ESTIMATED BLOOD LOSS: 50 mL. FLUID REPLACEMENT: 1200 mL crystalloid fluid replacement. ANESTHESIA: Spinal with adductor canal block. DRAINS: None. SPECIMENS: Left knee sent for pathology. TOURNIQUET TIME: 55 minutes at 300 mmHg. OPERATIVE INDICATIONS: The patient is a 68-year-old gentleman who has had a fairly long history of intermittent on and off left knee pain. He did have his left knee scoped by Dr. Hicks many years ago. Over the past year, he has developed increased pain and discomfort. It is unresponsive to all conservative treatment. X-rays showed moderate DJD. The patient elected to proceed with operative treatment. OPERATIVE FINDINGS: Operative findings revealed fairly extensive grade 4 [id number] disease in all 3 compartments. The findings were significantly more severe than the radiographs. He had a moderate sized knee joint effusion with a varus deformity. Some small osteophytes, particularly posteriorly. Fairly stiff knee with only about 110 degrees of flexion preoperatively. OPERATIVE IMPLANTS: Operative implants consisted of: 1. A Biomet Vanguard size 67.5 left posterior stabilized femoral component. 2. A Biomet size 71 tibial tray. 3. A 10 mm posterior stabilized polyethylene insert. 4. A 31 x 8 all poly patella. OPERATIVE PROCEDURE: The patient was taken to the operating room, identified and placed on the operating table in supine position. All contact areas were appropriately padded. IV antibiotics provided by anesthesia team. A spinal anesthetic and adductor canal block had been provided in the holding area. Ladd catheter was placed in sterile fashion. Left thigh tourniquet was then placed and left lower extremity was then prepped and draped in usual sterile fashion. Left leg was elevated and exsanguinated with Esmarch and tourniquet was placed at 300 mmHg. An anterior approach of the left knee was then performed through a longitudinal incision centered over the patella. Sharp dissection was carried through subcutaneous tissues down to the level of the extensor mechanism. A medial parapatellar arthrotomy incision was made. Some subperiosteal dissection was carried out medially. The fat pad was resected from beneath the patellar tendon. Lateral patellofemoral ligament was released. The patella was everted and knee was flexed. The osteophytes were taken off the distal femur. The ACL and PCL were then released from distal femur. The tibia subluxated anteriorly. The external tibial alignment jig was then placed in the anterior face of the tibia and adjusted 16 mm medially. Proximal tibial cut was made to remove about 2 mm of bone from the most deficient aspect of the medial tibial plateau. The tibia was then sized to a size 71. Some osteophytes were taken off medial and posteromedially. Attention was then drawn to the femur. The distal femur was entered with a sharp drill bit. Intramedullary canal was suctioned. A right 6 degree valgus cutting guide was placed. Distal femoral cutting block was pinned in place. Distal femoral cut was made to take an additional 3 mm of bone off the distal femur. The femur was then sized to a size 67.5. We did downsize this slightly. The AP cutting block was pinned parallel to the epicondylar axis, which was 6 degrees of external rotation. The anterior cut, anterior chamfer, posterior cut, posterior chamfer cut was made. Box cutting guide was placed and adjusted slightly laterally and the box was cut. The knee was flexed. The remnants of the medial and lateral menisci were excised. The osteophytes were taken off the posterior aspect of the femur. Trial femoral component was placed. Tibial tray was pinned in maximum external rotation and drill and stem punch were used to create defect in proximal tibia for the tibial tray. The knee was then trialed and the 10 mm insert fit most appropriately. Attention was then drawn to the patella. The patella was cleaned of all soft tissues. Patella thickness was measured 23 mm in thickness, was cut down to 14. It was sized to a size 31 patella. Lug holes were drilled for 31 patella. Lateral osteophyte was removed. Patella button was placed. Knee was taken through range of motion and the patella tracked nicely with no thumbs test. Attention was then drawn toward placing the permanent components. All trial components were removed. Bone plug was placed in the distal femur to limit blood loss. A double batch of Palacos G cement was mixed. A Biomet Vanguard size 67.5 left posterior back from femoral component, size 71 tibial tray, 10 mm posterior stabilized polyethylene insert, and a 31 x 8 all poly patella were then cemented in place. Knee was brought down into full extension until cement hardened. Final cement check was then performed. Pericapsular tissues were injected with a total of 100 mL of a combination of 20 mL of Exparel, 30 mL of normal saline, 50 mL of 0.25% Marcaine with epinephrine. The patient did receive 1 gram of tranexamic acid. The tourniquet was then let down for final tourniquet time of 55 minutes. Hemostasis was assured with use of electrocautery. The extensor mechanism was then closed with a combination of #1 PDS suture and #1 Vicryl suture in [id number] fashion. Extensor mechanism was checked and found to be intact. Subcutaneous tissues were then closed with #2 Dexon suture in a buried interrupted fashion. Skin was closed with skin jose a. Leg was then cleaned, dried and a sterile dressing of Xeroform, 4 x 4's, sterile cast padding and Daniel bandage were applied. The patient then transferred to the recovery room in stable condition. The patient tolerated the procedure well with no complication. All needle and sponge counts were correct at the end of the operation. I attest to the content of the Intraoperative Record and any orders documented therein. Any exception s are noted below.
[2018-08-02] MEDS ORDERED: HYDROmorphone INJ 0.5 MG/0.5 ML SYR IV PRN (12:47)
[2018-08-02] MEDS ORDERED: MAGNESIUM HYDROXIDE SUSP 30 ML UDC PO PRN (12:47)
[2018-08-02] MEDS ORDERED: ALUMINUM/MAGNESIUM SUSP 30 ML UDC PO PRN ×2 (12:47)
[2018-08-02] MEDS ORDERED: TAMSULOSIN HCL 0.4 MG CAP PO PRN (12:47)
[2018-08-02] MEDS ORDERED: OXYCODONE HCL IR 5 MG TAB (IMMEDIATE RELEASE) PO PRN (12:47)
[2018-08-02] MEDS ORDERED: METOCLOPRAMIDE HCL INJ 5 MG/ML 2 ML VIAL IV PRN (12:47)
[2018-08-02] MEDS ORDERED: ONDANSETRON INJ 2 MG/ML 2 ML VIAL IV PRN (12:47)
[2018-08-02] MEDS ORDERED: BISACODYL 10 MG SUPP PR PRN (12:47)
[2018-08-02] MEDS: ACETAMINOPHEN 500 MG TAB PO SCH ×2 (14:01→20:59)
[2018-08-02] MEDS: SODIUM CHLORIDE 0.9% 1000ML 1,000 ML IV SCH (14:02)
[2018-08-02] MEDS ORDERED: GLUCOSE 40% GEL 15 GM TUBE PO PRN (14:24)
[2018-08-02] MEDS ORDERED: DEXTROSE 50% 50 ML SYRINGE IV PRN (14:24)
[2018-08-02] MEDS ORDERED: PHARMACY GLYCEMIC MGMT CONSULT STA (14:24)
[2018-08-02] MEDS ORDERED: GLUCOSE 10 TABS/TUBE PO PRN (14:24)
[2018-08-02] MEDS ORDERED: GLUCAGON FOR INJ 1 MG VIAL SQ PRN (14:24)
[2018-08-02] MEDS ORDERED: CARBOHYDRATES FOR HYPOGLYCEMIA PO PRN (14:24)
[2018-08-02] MEDS ORDERED: PHARMACY GLYCEMIC MGMT CONSULT PRN (14:28)
[2018-08-02] MEDS ORDERED: INSULIN GLARGINE SOLOSTAR 100 UNITS/ML 3 ML PEN SC ONE (15:30)
[2018-08-02] MEDS: CHECK SCOPOLAMINE PATCH PLACEMENT SCH (15:49)
[2018-08-02] MEDS: KETOROLAC TROMETHAMINE 15 MG/ML VIAL IV SCH ×2 (15:49→21:00)
[2018-08-02] MEDS: glipiZIDE 5 MG TAB PO SCH (16:39)
[2018-08-02] MEDS: FERROUS GLUCONATE 324 MG TAB PO SCH (17:17)
[2018-08-02] MEDS: INSULIN ASPART 100 UNITS/ML 3 ML PEN SC SCH ×2 (18:12→20:59)
[2018-08-02] MEDS: CEFAZOLIN 2000MG 2,000 MG/15 ML SYR IV SCH (18:13)
[2018-08-02] MEDS ORDERED: TRANEXAMIC ACID 1,000 MG in 0.9 % SODIUM CHLORIDE 100 ML IV SCH (20:00)
[2018-08-02] MEDS: SENNA 8.6 MG TAB PO SCH (20:58)
[2018-08-02] MEDS: DOCUSATE SODIUM 100 MG CAP PO SCH (20:59)
[2018-08-02] MEDS: ATORVASTATIN 20 MG TAB PO SCH (20:59)
[2018-08-02] MEDS: TAPENTADOL HCL ER 50 MG TABCR PO SCH (20:59)
[2018-08-02] MEDS: ASPIRIN 81 MG ECTAB PO SCH (20:59)
[2018-08-03] MEDS: CHECK SCOPOLAMINE PATCH PLACEMENT SCH ×4 (00:26→23:04)
[2018-08-03] MEDS: CEFAZOLIN 2000MG 2,000 MG/15 ML SYR IV SCH (01:07)
[2018-08-03] MEDS: KETOROLAC TROMETHAMINE 15 MG/ML VIAL IV SCH ×4 (04:32→20:59)
[2018-08-03] MEDS: ACETAMINOPHEN 500 MG TAB PO SCH ×3 (05:54→20:59)
[2018-08-03 06:40] LABS: Hematocrit (blood only) 38.7 % (42-52); Mean Corpuscular Hgb Conc 33.6 g/dL (32-36); Mean Corpuscular Volume 81.8 fL (80-100); Mean Platelet Volume 8.6 fL (7.4-10.4); Platelet Count 171 K/uL (130-400); RDW Coefficient of Variation 12.8 % (11.5-14.5); RDW Standard Deviation 38.8 fL (36.4-46.3); Red Blood Count 4.73 M/uL (4.7-6.1); White Blood Count 6.84 K/uL (4.8-10.8)
[2018-08-03] MEDS ORDERED: Nursing to Pharmacy Communication ONE (07:02)
[2018-08-03] MEDS: LR 500ML BOLUS, THEN 15ML/HR IV SCH (07:14)
[2018-08-03 07:19] LABS: BUN Creatinine Ratio 17.8 (10-20); Calcium 8.2 mg/dl (8.5-10.1); Creatinine Clr Calc Pharmacy 52.6 ml/min; Est GFR (African American) 55.9; Est GFR (Non-African American) 48.3; Potassium 3.9 mmol/L (3.5-5.1)
--- NOTE | 2018-08-03 07:31 | Progress Note ---
DATE: 08/03/2018 SUBJECTIVE: A 68-year-old gentleman postop day 1 from left knee replacement. He is doing well. Really not having much pain at all. No chest pain or shortness of breath. Had a pretty good night. Not feeling dizzy or lightheaded. OBJECTIVE: VITAL SIGNS: Temperature 36.6. Vital signs stable. GENERAL: Physical examination shows a healthy, pleasant, middle-aged male. He is sitting up in bed, looks comfortable. LUNGS: Clear to auscultation. HEART: Regular rate and rhythm. ABDOMEN: Soft, nontender, nondistended. EXTREMITIES: Grossly neurovascularly intact except as follows: Examination of the left lower extremity reveals the leg to be well aligned. Dressing is clean, dry, and intact. He can dorsiflex and plantarflex his foot appropriately. He is neurologically intact. LABORATORY DATA: Hemoglobin 13.0, hematocrit 38.7. Electrolytes are pending. ASSESSMENT: A 68-year-old gentleman postop day 1 from left knee replacement, doing well. His pain is controlled. He is neurologically intact. PLAN: 1. DVT prophylaxis including thigh-high TEDs, SCDs, and aspirin twice daily. 2. PT/OT. Weight bear as tolerated. Left total knee protocol. 3. Pain control, doing well with current pain regimen. 4. Disposition: Plan to discharge to home likely with some home health once adequately recovered.
--- NOTE | 2018-08-03 07:41 | Anesthesiology Progress Note ---
Date of Service August 03, 2018 Anesthesia Post Procedure Vital Signs Vital Signs: Temp Pulse Pulse Resp BP Pulse Ox 08/02/18 23:47 36.6 C 79 17 120/74 91 08/02/18 20:28 36.5 C 70 18 126/79 98 08/02/18 15:04 36.4 C L 68 18 134/86 96 08/02/18 13:59 36.4 C L 70 17 126/77 96 08/02/18 13:05 36.3 C L 68 17 127/80 96 08/02/18 12:39 36.5 C 77 17 116/70 95 08/02/18 12:00 36.9 C 69 20 123/71 95 08/02/18 11:50 67 19 118/68 94 08/02/18 11:40 72 20 121/69 94 08/02/18 11:30 36.6 C 76 18 117/67 94 08/02/18 11:20 79 18 102/63 94 08/02/18 11:11 36.6 C 86 12 106/60 95 Pain Intensity Left Knee: Pain Intensity: 0 Notes Mental Status: alert / awake / arousable and participated in evaluation Patient Amnestic to Procedure: Yes Nausea / Vomiting: adequately controlled Pain: adequately controlled Airway Patency, RR, SpO2: stable & adequate BP & HR: stable & adequate Hydration State: stable & adequate Neuraxial Anesthesia: was administered and sensory block resolved Anesthetic Complications: no major complications apparent
[2018-08-03] MEDS: glipiZIDE 5 MG TAB PO SCH (08:05)
[2018-08-03] MEDS: MULTIVITAMIN TAB PO SCH (08:38)
[2018-08-03] MEDS: PANTOprazole 40 MG TAB PO SCH (08:38)
[2018-08-03] MEDS: FERROUS GLUCONATE 324 MG TAB PO SCH ×2 (08:38→17:55)
[2018-08-03] MEDS: DOCUSATE SODIUM 100 MG CAP PO SCH ×2 (08:38→21:03)
[2018-08-03] MEDS: ASPIRIN 81 MG ECTAB PO SCH ×2 (08:39→20:59)
[2018-08-03] MEDS: CHOLECALCIFEROL 1,000 UNITS TAB PO SCH (08:40)
[2018-08-03] MEDS: LISINOPRIL 10 MG TAB PO SCH (08:40)
[2018-08-03] MEDS: TAPENTADOL HCL ER 50 MG TABCR PO SCH ×2 (08:43→21:03)
[2018-08-03] MEDS: INSULIN ASPART 100 UNITS/ML 3 ML PEN SC SCH ×4 (08:45→20:59)
[2018-08-03] MEDS: INSULIN GLARGINE SOLOSTAR 100 UNITS/ML 3 ML PEN SC SCH ×2 (08:46→21:00)
[2018-08-03] MEDS ORDERED: NON-FORMULARY MEDICATION (Omeprazole Magnesium [Prilosec Otc] 20 MG) PO SCH (09:00)
--- NOTE | 2018-08-03 13:44 | Pharmacy Report ---
Pharmacy Glycemic Short Note 2 - Date of Service August 03, 2018 - Glycemic Short BSG Results (Last 24 hours): 08/02/18 08/02/18 08/03/18 17:14 20:56 06:10 Glucose 125 H POC Glucose 153 H 143 H 08/03/18 08/03/18 07:46 12:31 Glucose POC Glucose 159 H 189 H OUTPATIENT ANTIDIABETIC REGIMEN: * Metformin 1g BID, Glipizide, empagliflozin, Saxagliptin ASSESSMENT: * Mr. Haile's BSGs over the previous 24hrs have been fairly well controlled. [phone] -[phone]/dL. * Will continue with standing insulin orders PLAN FOR INPATIENT GLYCEMIC CONTROL: * Hold outpatient oral diabetes medications * Basal insulin * Lantus scale SQ BID * BSGs <120mg/dL hold lantus * BSGs 120-180mg/dL give 9 units * BSGs >180mg/dL give 16 units * Bolus insulin * NovoLog per scale ACHS or Q6hrs while NPO * Goal Range: Low 110 mg/dL - High 140 mg/dL * Correction Factor: 25 mg/dL/unit * Nutritional / Prandial insulin per carb ratio of 1 unit per 8 grams CHO consumed
[2018-08-03] MEDS: SODIUM CHLORIDE 0.9% 1000ML 1,000 ML IV SCH (13:54)
[2018-08-03] MEDS: ATORVASTATIN 20 MG TAB PO SCH (20:59)
[2018-08-03] MEDS: SENNA 8.6 MG TAB PO SCH (21:04)
[2018-08-04] MEDS: KETOROLAC TROMETHAMINE 15 MG/ML VIAL IV SCH ×2 (03:25→09:12)
[2018-08-04] MEDS: ACETAMINOPHEN 500 MG TAB PO SCH (05:59)
[2018-08-04] MEDS: DOCUSATE SODIUM 100 MG CAP PO SCH (07:45)
[2018-08-04] MEDS: ASPIRIN 81 MG ECTAB PO SCH (07:48)
[2018-08-04] MEDS: LISINOPRIL 10 MG TAB PO SCH (07:48)
[2018-08-04] MEDS: MULTIVITAMIN TAB PO SCH (07:49)
[2018-08-04] MEDS: CHOLECALCIFEROL 1,000 UNITS TAB PO SCH (07:49)
[2018-08-04] MEDS: PANTOprazole 40 MG TAB PO SCH (07:49)
[2018-08-04] MEDS: TAPENTADOL HCL ER 50 MG TABCR PO SCH (07:50)
[2018-08-04] MEDS: CHECK SCOPOLAMINE PATCH PLACEMENT SCH (07:50)
[2018-08-04] MEDS: INSULIN ASPART 100 UNITS/ML 3 ML PEN SC SCH (07:53)
[2018-08-04] MEDS: INSULIN GLARGINE SOLOSTAR 100 UNITS/ML 3 ML PEN SC SCH (07:54)
[2018-08-04] MEDS: FERROUS GLUCONATE 324 MG TAB PO SCH (08:00)
--- NOTE | 2018-08-04 08:16 | Progress Note ---
DATE: 08/04/2018 SUBJECTIVE: A 68-year-old gentleman postop day 2 from a left knee replacement. He is doing pretty well. A little bit more painful with therapy yesterday, but still doing quite well. No chest pain or shortness of breath. Not feeling dizzy or lightheaded. OBJECTIVE: VITAL SIGNS: Temperature 36.8. Vital signs stable. EXTREMITIES: Examination of the left lower extremity reveals the dressing to be clean, dry and intact. No significant drainage. Calf is soft and supple. He is neurologically intact. ASSESSMENT: A 68-year-old gentleman postop day 2 from a left knee replacement, doing well. His pain is controlled. PLAN: 1. DVT prophylaxis including thigh-high TEDs, SCDs, and aspirin twice a day. 2. PT/OT. Weight bear as tolerated. Left total knee protocol. 3. Pain control, doing well with current pain regimen. 4. Disposition: Plan to discharge to home with some home health after therapy this morning.
--- NOTE | 2018-08-09 09:56 | Discharge Summary ---
ADMITTING PHYSICIAN AND SURGEON: Jair Tan MD ADMITTING DIAGNOSIS: Left knee degenerative joint disease. SURGERY PERFORMED: Left total knee arthroplasty. SECONDARY DIAGNOSES: Diabetes, hypertension, elevated cholesterol, low back pain, gastroesophageal reflux disease, mild obesity. CONSULTS: None obtained. HISTORY AND PHYSICAL EXAMINATION: Well documented in the patient's chart. HOSPITAL COURSE: The patient was admitted on 08/02/2018, underwent total knee arthroplasty, tolerated the procedure well. There were no complications. He was transferred to the PACU postoperatively and later to the orthopedic floor for further care. He was given Ancef for antibiotic prophylaxis, LELO stockings, SCDs and aspirin for DVT prophylaxis. Hemoglobin, hematocrit and vital signs were monitored during his hospital stay and remained stable, did not require any blood transfusions. On postoperative day 2, he was tolerating a diabetic diet. Pain was controlled with oral pain medicine. He was participating in physical therapy. On postop day 2, he was discharged home, set up with home health services. He was given printed discharge instructions including new prescriptions for extra-strength Tylenol, aspirin, and oxycodone. Continue his home medications with the exception of his home dose of aspirin which was changed. Continue physical therapies, weightbearing as tolerated, LELO stockings. Follow up approximately 2 weeks or sooner if there are any problems or concerns.
== END 2018-08-04 10:01 | disposition home health service (06) | DRG 470 ==
LOC: ASU 06:29 → 3E 11:10